=== PATIENT | female | born 1995 | race Caucasian/White ===

== ENCOUNTER 2022-11-07 20:47 | Emergency (ER) | payer BC ==
[~2022-11-07] VITALS: Ht 172.7 cm; Wt 92.7 kg
[2022-11-07 20:57] VITALS: TEMP 98.1
[2022-11-07] MEDS ORDERED: WELLBUTRIN XL150 MG PO (21:49)
[2022-11-07] MEDS ORDERED: ADDERALL XR20 MG PO (21:49)
[2022-11-07] MEDS ORDERED: NORCO 325 MG-51 TAB PO (22:20)
[2022-11-07 22:53] VITALS: BP 143/78; PULSE 76
== END 2022-11-07 22:53 | disposition home or self-care (01) ==
LOC: COL.ER 20:47
DX: S62.306A Unspecified fracture of fifth metacarpal bone, right hand, initial encounter for closed fracture (principal); W22.8XXA Striking against or struck by other objects, initial encounter